=== PATIENT | female | born 2000 | race Caucasian/White ===

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

== ENCOUNTER → 2018-08-04 | Outpatient (CLI) | payer BC | LOC: GMATM 12:55 | PROVIDERS: ATTEND Nurse Practitioner Family | DX: N39.0 Urinary tract infection, site not specified (principal) ==

== ENCOUNTER → 2019-03-13 | Outpatient (CLI) | payer BC | LOC: GMAM 17:17 | PROVIDERS: ATTEND Family Medicine | DX: R41.3 Other amnesia (principal) ==